=== PATIENT | female | born 1970 | race Caucasian/White ===

== ENCOUNTER 2016-11-22 22:55 | Emergency (ER) | payer OTHER ==
[~2016-11-22] VITALS: Ht 157.5 cm; Wt 69.9 kg
[2016-11-23 00:08] LABS: HEMATOCRIT 45.5 % (36.0-46.0); MCH 30.5 PG (29.0-34.0); MCV 92.5 FL (83-99); MEAN PLAT.VOLUME 9.4 uM^3 (9.5-12.4); PLATELET COUNT 400 K/uL (156-360); RBC DIS.WIDTH-CV 12.9 % (11.8-14.6); RBC DIS.WIDTH-SD 43.7 % (39-53); RED BLOOD COUNT 4.92 M/uL (3.80-5.20); WHITE BLOOD COUNT 10.5 K/uL (4.1-10.2)
[2016-11-23 00:16] LABS: CHLORIDE 108 mEq/L (99-109); POTASSIUM 3.8 mEq/L (3.7-5.4); SODIUM 142 mEq/L (136-147)
[2016-11-23 00:18] LABS: GLUCOSE 121 mg/dL (70-99)
[2016-11-23 00:19] LABS: ANION GAP 11 MEQ/L (2-14)
[2016-11-23 00:22] LABS: GFR ESTIMATE (CALCULATED) > 59 mL/min/
[2016-11-23 00:23] LABS: UREA NITROGEN (BUN) 12 mg/dL (9-23)
[2016-11-23 00:46] LABS: TROP-I INTERPRETATION NEGATIVE; TROPONIN-I < 0.01 ng/mL (0.0-0.30)
[2016-11-23 01:12] VITALS: BP 145/94
== END 2016-11-23 01:27 | disposition home or self-care (01) ==
LOC: EME 22:55
PROVIDERS: Emergency Medicine
DX: R00.2 Palpitations (principal); R06.00 Dyspnea, unspecified
CPT/HCPCS: 71020; 80048; 84484; 85027; 93005; 99281; 99283